=== PATIENT | male | born 1950 | race African-American/Black ===

== ENCOUNTER 2017-10-04 17:51 | Emergency (ER) | payer MEDICARE ==
[~2017-10-04] VITALS: Ht 167.6 cm; Wt 59.2 kg
[~2017-10-04 17:51] MED LIST: ANUSOL HC; ASPIRIN LOW DOS81 M2 PO; ATORVASTATI80 MG/TAB PO; ISOSORBIDE MONO30 MG PO; PERCOCET 5/325M1 TAB PO; PRAVACHOL20 MG PO; [UNRECOGNIZED DRUG - OTHER] PO
[2017-10-04] MEDS ORDERED: XALATAN 0.005%2.5 ML OU (18:26)
[2017-10-04 19:26] LABS: HEMATOCRIT 43.2 % (39.0-50.0); IMMATURE GRANULOCYTES 0.4 % (0.0-1.0); MEAN CELL VOLUME 88.3 fL CALC (80.0-100.0); MEAN CORPUSCULAR HGB 30.7 pG CALC (26.0-32.0); MEAN CORPUSCULAR HGB CONC 34.7 g/L CALC (32.0-36.0); NEUT# 4.8 thou/uL (1.82-7.42); RED BLOOD COUNT 4.89 mill/uL (4.70-6.10); RED CELL DISTRI WIDTH 14.8 % (11.5-15.5)
[2017-10-04 19:33] LABS: ALKALINE PHOSPHATASE 86 u/l (38-126); ANION GAP 12 (6-22 (CALC)); BILIRUBIN, TOTAL 0.4 mg/dL (0.0-1.4); BUN 14 mg/dL (8-23); BUN/CREATININE RATIO 14 (12-20 (CALC)); CARBON DIOXIDE 25 mmol/l (22-30); CHLORIDE 105 mmol/l (95-108); GFR > 60 ML/MIN (>=60 (CALC)); GFR FOR AFR.AMER. > 60 ML/MIN (>=60 (CALC)); SGOT/AST 47 u/l (19-48); SGPT/ALT 52 u/l (11-66); SODIUM 138 mmol/l (137-146)
[2017-10-04 19:34] LABS: ALBUMIN 4.5 g/dL (3.2-5.0); TOTAL PROTEIN 8.2 g/dL (6.3-8.2)
[2017-10-04 19:45] LABS: MYOGLOBIN 28 ng/mL (0 - 121)
[2017-10-04 20:50] VITALS: BP 134/81
== END 2017-10-04 20:55 | disposition short-term general hospital (02) ==
LOC: ED 17:51
PROVIDERS: Emergency Medicine
DX: R04.2 Hemoptysis (principal); R91.8 Other nonspecific abnormal finding of lung field; E78.00 Pure hypercholesterolemia, unspecified; F17.210 Nicotine dependence, cigarettes, uncomplicated; R07.9 Chest pain, unspecified

== ENCOUNTER → 2018-01-09 | Outpatient (REF) ==
[~2018-01-09] MED LIST changes: +XALATAN 0.005%2.5 ML OU
== END | disposition home or self-care (01) | DRG 179 ==
LOC: DI 10:34
PROVIDERS: ATTEND Family Medicine
DX: A15.0 Tuberculosis of lung (principal)

== ENCOUNTER 2020-05-14 12:12 | Day surgery (SDC) | payer MEDICARE ==
[~2020-05-14] VITALS: Ht 167.6 cm; Wt 59.0 kg
[2020-05-14 15:08] VITALS: BP 143/83
== END 2020-05-14 15:40 | disposition home or self-care (01) ==
LOC: ORM 12:12 → PO 14:00 → ORM 14:00
PROVIDERS: ATTEND Urology
PROC: 0VB03ZX Excision of Prostate, Percutaneous Approach, Diagnostic (ICD-10-PCS; principal; 2020-05-14)
PROC: BV49ZZZ Ultrasonography of Prostate and Seminal Vesicles (ICD-10-PCS; 2020-05-14)
DX: N42.31 Prostatic intraepithelial neoplasia (principal); N40.1 Benign prostatic hyperplasia with lower urinary tract symptoms; R39.12 Poor urinary stream; N13.8 Other obstructive and reflux uropathy; I12.9 Hypertensive chronic kidney disease with stage 1 through stage 4 chronic kidney disease, or unspecified chronic kidney disease; N18.30 Chronic kidney disease, stage 3 unspecified; E78.5 Hyperlipidemia, unspecified; F17.210 Nicotine dependence, cigarettes, uncomplicated; Z20.822 Contact with and (suspected) exposure to COVID-19